=== PATIENT | female | born 1985 | race Caucasian/White ===

== ENCOUNTER 2016-04-28 11:48 | Emergency (ER) | payer OTHER ==
[~2016-04-28] VITALS: Ht 149.9 cm; Wt 61.2 kg
[2016-04-28 12:09] VITALS: BP 124/92
[2016-04-28] MEDS ORDERED: TRAM-29 PO (12:52)
[2016-04-28] MEDS ORDERED: SULF1TAB24 PO (12:52)
--- NOTE | 2016-04-28 12:52 | PHYS DOC ---
Past Medical History Past Medical History: No Pertinent History Past Surgical History: Appendectomy, Tubal ligation Smoking: Less than 1pk/day Alcohol Use: Occasionally Drug Use: None Adult General Chief Complaint Chief Complaint: SKIN PROBLEM HPI HPI Patient is a 30 year old female who presents with left axillary abscess for 3 days. She denies any fever or drainage from the wound. She's had similar in the groin but never in the axillae. Her PCP is Rosendo Franklin. Review of Systems Review of Systems Constitutional: Denies fever or chills. [] Integument: Reports left axillary abscess. Neurologic: Denies focal weakness or sensory changes. [] Allergies Allergies Allergies Coded Allergies Type Severity Reaction Last Updated Verified No Known Drug Allergies 04/28/16 No Physical Exam Physical Exam Constitutional: Well developed, well nourished, no acute distress, non-toxic appearance. [] HENT: Normocephalic, atraumatic, oropharynx moist. [] Eyes: PERRLA, EOMI, conjunctiva normal, no discharge. [] Skin: Warm, dry, no erythema, no rash. There is a 1 cm indurated abscess in the left axilla without spontaneous drainage. There is no surrounding cellulitis. Extremities: No tenderness, ROM intact, no edema.. [] Neurologic: Alert and oriented X 3, normal motor function, normal sensory function, no focal deficits noted. [] Psychologic: Affect normal, judgement normal, mood normal. [] Current Patient Data Vital Signs Vital Signs Date Time Temp Pulse Resp B/P Pulse Ox O2 Delivery O2 Flow Rate FiO2 04/28/16 12:09 98.7 79 18 98 Room Air 98.7 EKG EKG [] Radiology/Procedures Radiology/Procedures [] Course & Med Decision Making Course & Med Decision Making Pertinent Labs and Imaging studies reviewed. (See chart for details) [] Dragon Disclaimer Dragon Disclaimer This electronic medical record was generated, in whole or in part, using a voice recognition dictation system. Departure Departure Impression: Primary Impression: Axillary abscess Disposition: 01 HOME, SELF-CARE Condition: STABLE Referrals: ROSENDO FRANKLIN (PCP) Patient Instructions: Abscess, [id number] Additional Instructions: You were seen today for an abscess in your arm pit. Please complete all the prescribed antibiotics, even if you are feeling better. Please take the prescribed pain medication as directed. Do not drive or operate heavy machinery while taking pain medication. Please apply warm compresses to the arm pit to help encourage drainage from the wound. Please follow-up with your primary care doctor in the next 2-3 days for recheck of your wound, or sooner if worsening. Return to the emergency department if you have any new or concerning symptoms. Scripts Tramadol Hcl (Ultram)50 Mg Nudgxy52 Mg PO Q6H PRN PAIN #20 TAB Prov:KASI MENDEZ 04/28/16 Sulfamethoxazole/Trimethoprim (Bactrim Ds Tablet)1 Each Tablet1 Tab PO BID #14 TAB Prov:KASI MENDEZ 04/28/16 KASI MENDEZ Apr 28, 2016 12:52
== END 2016-04-28 12:59 | disposition home or self-care (01) ==
LOC: ER 11:48
DX: L02.412 Cutaneous abscess of left axilla (principal); F17.200 Nicotine dependence, unspecified, uncomplicated; Z98.51 Tubal ligation status; Z90.49 Acquired absence of other specified parts of digestive tract
CPT/HCPCS: 99283

== ENCOUNTER 2016-08-31 11:18 | Emergency (ER) | payer SELFPAY ==
[~2016-08-31] VITALS: Ht 149.9 cm; Wt 59.0 kg
[~2016-08-31 11:18] MED LIST: SULF1TAB24 PO; TRAM-29 PO
[2016-08-31] MEDS ORDERED: IV NORMAL SALINE 1000ML BAG 1,000 ML IV SCH (12:10)
[2016-08-31] MEDS ORDERED: ONDANSETRON PF 4 MG/2 ML VIAL. IV PRN (12:15)
--- NOTE | 2016-08-31 12:18 | PHYS DOC ---
Past Medical History Past Medical History: Anxiety, Depression Past Surgical History: Appendectomy, Tubal ligation Smoking: Cigarettes Alcohol Use: Occasionally Drug Use: Marijuana Adult General Chief Complaint Chief Complaint: CHEST WALL PAIN HPI HPI Patient is a 31 year old female who presents with [chest and abdominal pain] Pt states are sloppy joes for dinner and then ice cream before bedtime. Pt states at midnight "had worst heartburn of life" while lying in bed. Chest tightness and burning. No appetite this am and then worse pain in upper abdomen and chest. Radiated to RUQ and back to throbbing pain then SOA this am with pain. Pain currently 6/10. Pt states she has been under alot of stress and may have also had black looking stools. No fever or chills, no dysuria, no appetite this am Pt admits to 2 episodes of diarrhea today no blood just dark, dry cough , no hemoptysis Review of Systems Review of Systems Constitutional: Denies fever or chills [] Eyes: Denies change in visual acuity, redness, or eye pain [] HENT: Denies nasal congestion or sore throat [] Respiratory: yes shortness of air and slight dry cough Cardiovascular: No additional information not addressed in HPI [] GI: yes abdominal pain, + nausea, no vomiting, bloody stools mild diarrhea] : Denies dysuria or hematuria [] Musculoskeletal: Denies back pain or joint pain [] Integument: Denies rash or skin lesions [] Neurologic: Denies headache, focal weakness or sensory changes [] Current Medications Current Medications Current Medications Medications (Trade) Dose Ordered Sig/Kenn Start Time Stop Time Status Last Admin Dose Admin Info (Do NOT chart on this entry -- for MONITORING) 1 each PRN DAILY PRN 08/31/16 14:30 08/31/16 16:18 DC Iohexol (Omnipaque 300 Mg/ml) 75 ml 1X ONCE 08/31/16 14:30 08/31/16 14:31 DC 08/31/16 14:45 75 ML Morphine Sulfate 2 mg 1X ONCE 08/31/16 15:30 08/31/16 15:31 DC Ondansetron HCl (Zofran) 4 mg PRN Q6HRS PRN 08/31/16 12:15 08/31/16 16:18 DC 08/31/16 12:27 4 MG Pantoprazole Sodium (Protonix Vial) 40 mg 1X ONCE 08/31/16 14:00 08/31/16 14:01 DC 08/31/16 14:10 40 MG Sodium Chloride 1,000 ml @ 1,000 mls/hr Q1H 08/31/16 12:10 08/31/16 13:09 DC 08/31/16 12:26 1,000 MLS/HR Allergies Allergies Allergies Coded Allergies Type Severity Reaction Last Updated Verified No Known Drug Allergies 04/28/16 No Physical Exam Physical Exam Constitutional: Well developed, well nourished, no acute distress, non-toxic appearance. [] HENT: Normocephalic, atraumatic, bilateral external ears normal, oropharynx moist, no oral exudates, nose normal. [] Eyes: PERRLA,, conjunctiva normal, no discharge. [] Neck: Normal range of motion, no tenderness, supple, no stridor. [] Cardiovascular:Heart rate regular rhythm, no murmur [] Lungs & Thorax: Bilateral breath sounds clear to auscultation , no chest wall tenderness to palpation Abdomen: Bowel sounds normal, soft, YES epigastric tenderness to palpation and RUQ tenderness, yes guarding no rebound no masses, no pulsatile masses. [] Skin: Warm, dry, no erythema, no rash. [] Back: No tenderness, no CVA tenderness. [] Extremities: No tenderness, no cyanosis, no clubbing, ROM intact, no edema. [] Neurologic: Alert and oriented X 3, normal motor function, normal sensory function, no focal deficits noted. [] Psychologic: Affect normal, judgement normal, mood normal. [] Current Patient Data Vital Signs Vital Signs Date Time Temp Pulse Resp B/P (MAP) Pulse Ox O2 Delivery O2 Flow Rate FiO2 08/31/16 15:53 83 106/68 (81) 08/31/16 15:52 Room Air 08/31/16 14:31 97 08/31/16 11:30 97.8 20 97.8 Lab Values Laboratory Tests Test 08/31/16 11:16 08/31/16 12:05 08/31/16 12:20 08/31/16 14:00 POC Urine HCG, Qualitative Hcg negative (Negative) Urine Collection Type Void Urine Color Yellow Urine Clarity Clear Urine pH 7.5 Urine Specific Webster <=1.005 Urine Protein Negative mg/dL (NEG-TRACE) Urine Glucose (UA) Negative mg/dL (NEG) Urine Ketones (Stick) Negative mg/dL (NEG) Urine Blood Negative (NEG) Urine Nitrite Negative (NEG) Urine Bilirubin Negative (NEG) Urine Urobilinogen Dipstick 0.2 mg/dL (0.2 mg/dL) Urine Leukocyte Esterase Trace (NEG) Urine RBC 0 /HPF (0-2) Urine WBC 1-4 /HPF (0-4) Urine Squamous Epithelial Cells Mod /LPF Urine Bacteria 0 /HPF (0-FEW) White Blood Count 10.8 x10^3/uL (4.0-11.0) Red Blood Count 4.73 x10^6/uL (3.50-5.40) Hemoglobin 15.2 g/dL (12.0-15.5) Hematocrit 44.1 % (36.0-47.0) Mean Corpuscular Volume 93 fL (79-100) Mean Corpuscular Hemoglobin 32 pg (25-35) Mean Corpuscular Hemoglobin Concent 34 g/dL (31-37) Red Cell Distribution Width 13.2 % (11.5-14.5) Platelet Count 187 x10^3/uL (140-400) Neutrophils (%) (Auto) 72 % (31-73) Lymphocytes (%) (Auto) 21 % (24-48) L Monocytes (%) (Auto) 6 % (0-9) Eosinophils (%) (Auto) 1 % (0-3) Basophils (%) (Auto) 1 % (0-3) Neutrophils # (Auto) 7.7 x10^3uL (1.8-7.7) Lymphocytes # (Auto) 2.3 x10^3/uL (1.0-4.8) Monocytes # (Auto) 0.7 x10^3/uL (0.0-1.1) Eosinophils # (Auto) 0.1 x10^3/uL (0.0-0.7) Basophils # (Auto) 0.1 x10^3/uL (0.0-0.2) Prothrombin Time 12.8 SEC (11.7-14.0) Prothrombin Time INR 1.0 (0.8-1.1) D-Dimer (Margarita) 0.22 ug/mlFEU (0.00-0.50) Maternal Serum HCG Beta Subunit 1 mIU/mL (0-6) Sodium Level 141 mmol/L (136-145) Potassium Level 3.8 mmol/L (3.5-5.1) Chloride Level 104 mmol/L (98-107) Carbon Dioxide Level 26 mmol/L (21-32) Anion Gap 11 (6-14) Blood Urea Nitrogen 9 mg/dL (7-20) Creatinine 0.6 mg/dL (0.6-1.0) Estimated GFR (Cockcroft-Gault) 116.6 Glucose Level 92 mg/dL (70-99) Calcium Level 8.9 mg/dL (8.5-10.1) Magnesium Level 2.0 mg/dL (1.8-2.4) Total Bilirubin 0.4 mg/dL (0.2-1.0) Direct Bilirubin 0.1 mg/dL (0.0-0.2) Aspartate Amino Transferase (AST) 18 U/L (15-37) Alanine Aminotransferase (ALT) 29 U/L (14-59) Alkaline Phosphatase 71 U/L (46-116) Creatine Kinase 55 U/L (26-192) Creatine Kinase MB (Mass) < 0.5 ng/mL (0.0-3.6) Creatine Kinase MB Relative Index % (0-4) Troponin I Quantitative < 0.017 ng/mL (0.000-0.055) LR-Chv-K-Type Natriuretic Peptide 113 pg/mL (0-124) Total Protein 7.4 g/dL (6.4-8.2) Albumin 3.9 g/dL (3.4-5.0) Lipase 105 U/L (73-393) POC Troponin I 0.00 ng/ml (<0.08) Laboratory Tests 08/31/16 12:20 Laboratory Tests 08/31/16 12:20 EKG EKG EKG 1135 Normal sinus rhythm no STEMI, nonspecific ST T wave changes[] Radiology/Procedures Radiology/Procedures PATIENT: NAMITA DIAZ ACCOUNT: [id number] : 1985 LOCATION: ER AGE: 31 SEX: F EXAM STATUS: REG ER ORD. PHYSICIAN: CARSON BURDEN MD REASON: abdominal pain PROCEDURE: CT CHEST ABDOMEN W/CONTRAST Indication chest pain. Shortness of breath. Upper abdominal pain. Cough. Axial images were obtained through the chest and abdomen. The pelvis was not examined. 75 cc of Omnipaque 300 was administered intravenously. No oral contrast was administered. CT chest: Findings. The thoracic aorta appears unremarkable. There is no significant hilar or mediastinal adenopathy. There is no acute parenchymal infiltrate seen in either lung. Calcified granuloma in the left lung is noted. There is a well-defined 8 x 2 mm nodule along the fissure in the right lung. This is seen on image 28 series 2. This is likely incidental but follow-up imaging along the lines of the Fleischner criteria should be considered. CT abdomen: Findings The liver and spleen appear unremarkable. The gallbladder appears grossly normal. No pancreatic abnormality is seen. No adrenal pathology is seen. There is a low-density 7 mm mass associated with the right kidney compatible with a cyst. Acute finding in the abdomen is not seen. IMPRESSION: No acute finding seen in the chest or abdomen. Well-defined 7 mm nodule in the right lung. It has very benign appearing characteristics on imaging. Follow-up along the lines of the Fleischner criteria should be considered. Nodules detected incidentally at non-screening CT Nodule size (mm) less than or equal to 4 Low Risk patients- no follow-up needed High Risk patients- follow-up at 12 months and if no change, no further imaging needed. Nodule size > 4-6 mm Low risk patients- follow- up at 12 months and if no change, no further imaging needed High risk patients- initial follow-up CT at 6-12 months and then at 18-24 months if no change. Nodule Size > 6-8 mm Low risk patients- initial follow-up CT at 6-12 months and then at 18-24 months if no change. High risk patients- initial follow- up CT at 3-6 months and then at 9-12 months if no change, Nodule Size >8 mm Either low or high risk patients: Follow-up CT at around 3, 9 and 24 months Dynamic contrast enhanced [address], PET, and/or biopsy Note: newly detected indeterminate nodule in person 35 years of age or older. Low risk patients- minimal or absent history of smoking and/or other known risk factors. High risk patients- history of smoking or of other known risk factors. PQRS Compliance Statement: One or more of the following individualized dose reduction techniques were utilized for this examination: 1. Automated exposure control 2. Adjustment of the mA and/or kV according to patient size 3. Use of iterative reconstruction technique DICTATED and SIGNED BY: APPLE WILSON MD DATE: 08/31/16 1453 CC: CARSON BURDEN MD; ROSENDO FRANKLIN ~ [] PATIENT: NAMITA DIAZ ACCOUNT: [id number] : 1985 LOCATION: ER AGE: 31 SEX: F EXAM STATUS: REG ER ORD. PHYSICIAN: CARSON BURDEN MD REASON: chest pain PROCEDU PATIENT: NAMITA DIAZ ACCOUNT: [id number] : 1985 LOCATION: ER AGE: 31 SEX: F EXAM STATUS: REG ER ORD. PHYSICIAN: CARSON BURDEN MD REASON: ruq abdominal pain PROCEDURE: ABDOMEN LTD Indication right upper quadrant pain. Grayscale imaging was performed targeted to the right upper quadrant. The visualized pancreas appears unremarkable. The visualized inferior vena cava appeared normal. No focal mass is seen in the visualized liver. The gallbladder appeared unremarkable. The common bile duct diameter of approximately 2 mm is normal. The right kidney appeared normal. IMPRESSION: Unremarkable right upper quadrant abdominal ultrasound exam DICTATED and SIGNED BY: APPLE WILSON MD DATE: 08/31/16 1241 CC: CARSON BURDEN MD; ROSENDO FRANKLIN ~ RE: PORTABLE CHEST 1V Indication chest pain. A single view of the chest was obtained and is compared to an examination 10/14/2005. The heart and pulmonary vessels are normal. There are occasional calcified left hilar lymph nodes and parenchymal granulomas in the left lung. The lungs are clear of acute infiltrates. A significant change relative to the previous exam is not seen. IMPRESSION: No acute or focal process. No significant change DICTATED and SIGNED BY: APPLE WILSON MD DATE: 08/31/16 1233 CC: CARSON BURDEN MD; ROSENDO FRANKLIN ~ Impressions: 1. abdominal pain 2. chest pain Course & Med Decision Making Course & Med Decision Making Pertinent Labs and Imaging studies reviewed. (See chart for details) 1345 Pt chest pain better now just epigastric pain, WBC normal, troponin normal, CXR normal, RUQ ultrasound normal no stone. Continued abdominal pain will give protonix, get CT abdomen/pelvis and repeat troponin and follow Pt after CT abdomen better tolerating ice chips and pain controlled. Pt denies chest pain now just epigastric pain Rectal no stool in rectum, no blood Discussed CT with pt and other tests. High chance of chololithiasis vs gastritis D/c with protoix and avoid fatty and fried foods with follow up PCP Wesley Disclaimer Dragon Disclaimer This electronic medical record was generated, in whole or in part, using a voice recognition dictation system. Departure Departure Impression: Primary Impression: Abdominal pain Additional Impression: Chest pain Disposition: HOME, SELF-CARE Condition: STABLE Referrals: ROSENDO FRANKLIN (PCP) Scripts Hydrocodone/Apap 5-325 (NORCO 5-325 TABLET) 1 Each Tablet 1 TAB PO PRN Q6HRS Y for PAIN, #14 TAB 0 Refills Prov: CARSON BURDEN MD 08/31/16 Pantoprazole Sodium (PROTONIX) 40 Mg Tablet. 1 TAB PO DAILY, #30 TAB 5 Refills Prov: CARSON BURDEN MD 08/31/16 Problem Qualifiers CARSON BURDEN MD August 31, 2016 12:18
[2016-08-31] MEDS: MORPHINE SULFATE 2 MG/ML DISP.SYRIN. IV/SQ PRN ×2 (12:29→15:52)
[2016-08-31 12:35] LABS: BILIRUBIN,URINE NEGATIVE (NEG); GLUCOSE,URINE NEGATIVE (NEG); NITRITE,URINE NEGATIVE (NEG); PH,URINE 7.5; PROTEIN,URINE NEGATIVE (NEG-TRACE); UROBILINOGEN,URINE 0.2 mg/dL (0.2 mg/dL)
[2016-08-31 12:35] LABS: BASO # 0.1 x10^3/uL (0.0-0.2); BASO % 1 % (0-3); EOS % 1 % (0-3); HEMATOCRIT 44.1 % (36.0-47.0); HEMOGLOBIN 15.2 g/dL (12.0-15.5); LYMPH # 2.3 x10^3/uL (1.0-4.8); LYMPH % 21 % (24-48); MEAN CORPUSCULAR HEMOGLOBIN 32 pg (25-35); MEAN CORPUSCULAR HGB CONC 34 g/dL (31-37); MEAN CORPUSCULAR VOLUME 93 fL (79-100); MONO % 6 % (0-9); NEUT % 72 % (31-73); PLATELET COUNT 187 x10^3/uL (140-400); RED BLOOD COUNT 4.73 x10^6/uL (3.50-5.40); RED CELL DISTRIBUTION WIDTH 13.2 % (11.5-14.5); WHITE BLOOD COUNT 10.8 x10^3/uL (4.0-11.0)
--- NOTE | 2016-08-31 12:37 | RAD ---
Indication chest pain. A single view of the chest was obtained and is compared to an examination 10/14/2005. The heart and pulmonary vessels are normal. There are occasional calcified left hilar lymph nodes and parenchymal granulomas in the left lung. The lungs are clear of acute infiltrates. A significant change relative to the previous exam is not seen. IMPRESSION: No acute or focal process. No significant change
[2016-08-31 12:41] LABS: CALCIUM 8.9 mg/dL (8.5-10.1); CREATININE 0.6 mg/dL (0.6-1.0); GFR 116.6; POTASSIUM 3.8 mmol/L (3.5-5.1)
--- NOTE | 2016-08-31 12:45 | EKG ---
[facility] [address] [place] [address] Test Date: 2016-08-31 Test Time: 11:35:57 Pat Name: NAMITA DIAZ Department: Room: Gender: F [employer]ural [employer]: : 1985 Requested By: CARSON BURDEN Order Number: [id number] Reading MD: Kerry Thorpe Measurements Intervals [place] Rate: 91 P: 42 NC: 124 QRS: 9 QRSD: 72 T: 10 QT: 336 QTc: 415 Interpretive Statements SINUS RHYTHM NORMAL EKG RI6.01 Unconfirmed report No previous ECG available for comparison Electronically Signed On 09-03-2016 20:39:10 CDT by Kerry Thorpe
--- NOTE | 2016-08-31 12:45 | RAD ---
Indication right upper quadrant pain. Grayscale imaging was performed targeted to the right upper quadrant. The visualized pancreas appears unremarkable. The visualized inferior vena cava appeared normal. No focal mass is seen in the visualized liver. The gallbladder appeared unremarkable. The common bile duct diameter of approximately 2 mm is normal. The right kidney appeared normal. IMPRESSION: Unremarkable right upper quadrant abdominal ultrasound exam
[2016-08-31 12:47] LABS: ALBUMIN 3.9 g/dL (3.4-5.0); DIRECT BILIRUBIN 0.1 mg/dL (0.0-0.2); TOTAL BILIRUBIN 0.4 mg/dL (0.2-1.0); TOTAL PROTEIN 7.4 g/dL (6.4-8.2)
[2016-08-31 12:58] LABS: CREATINE KINASE 55 U/L (26-192)
[2016-08-31 12:59] LABS: CKMB MASS < 0.5 ng/mL (0.0-3.6)
[2016-08-31 13:10] LABS: BACTERIA,URINE 0 /HPF (0-FEW); RBC,URINE 0 /HPF (0-2); SQUAMOUS EPITHELIAL CELL,UR MOD /LPF
[2016-08-31 13:20] LABS: PROTHROMBIN TIME PATIENT 12.8 SEC (11.7-14.0)
[2016-08-31] MEDS ORDERED: PANTOPRAZOLE IV PUSH 40 MG VIAL. IVP ONE (14:00)
[2016-08-31] MEDS ORDERED: IOHEXOL 300 MG/ML 75 ML VIAL IV ONE (14:30)
[2016-08-31] MEDS ORDERED: CONTRAST GIVEN MC PRN (14:30)
--- NOTE | 2016-08-31 15:06 | RAD ---
Indication chest pain. Shortness of breath. Upper abdominal pain. Cough. Axial images were obtained through the chest and abdomen. The pelvis was not examined. 75 cc of Omnipaque 300 was administered intravenously. No oral contrast was administered. CT chest: Findings. The thoracic aorta appears unremarkable. There is no significant hilar or mediastinal adenopathy. There is no acute parenchymal infiltrate seen in either lung. Calcified granuloma in the left lung is noted. There is a well-defined 8 x 2 mm nodule along the fissure in the right lung. This is seen on image 28 series 2. This is likely incidental but follow-up imaging along the lines of the Fleischner criteria should be considered. CT abdomen: Findings The liver and spleen appear unremarkable. The gallbladder appears grossly normal. No pancreatic abnormality is seen. No adrenal pathology is seen. There is a low-density 7 mm mass associated with the right kidney compatible with a cyst. Acute finding in the abdomen is not seen. IMPRESSION: No acute finding seen in the chest or abdomen. Well-defined 7 mm nodule in the right lung. It has very benign appearing characteristics on imaging. Follow-up along the lines of the Fleischner criteria should be considered. Nodules detected incidentally at non-screening CT Nodule size (mm) less than or equal to 4 Low Risk patients- no follow-up needed High Risk patients- follow-up at 12 months and if no change, no further imaging needed. Nodule size > 4-6 mm Low risk patients- follow- up at 12 months and if no change, no further imaging needed High risk patients- initial follow-up CT at 6-12 months and then at 18-24 months if no change. Nodule Size > 6-8 mm Low risk patients- initial follow-up CT at 6-12 months and then at 18-24 months if no change. High risk patients- initial follow- up CT at 3-6 months and then at 9-12 months if no change, Nodule Size >8 mm Either low or high risk patients: Follow-up CT at around 3, 9 and 24 months Dynamic contrast enhanced [address], PET, and/or biopsy Note: newly detected indeterminate nodule in person 35 years of age or older. Low risk patients- minimal or absent history of smoking and/or other known risk factors. High risk patients- history of smoking or of other known risk factors. PQRS Compliance Statement: One or more of the following individualized dose reduction techniques were utilized for this examination: 1. Automated exposure control 2. Adjustment of the mA and/or kV according to patient size 3. Use of iterative reconstruction technique
[2016-08-31] MEDS ORDERED: MORPHINE SULFATE 2 MG/ML DISP.SYRIN. IV ONE (15:30)
[2016-08-31 15:53] VITALS: BP 106/68
[2016-08-31] MEDS ORDERED: PANT40TA3 PO (15:54)
[2016-08-31] MEDS ORDERED: HYDR-971 PO (15:54)
== END 2016-08-31 16:12 | disposition home or self-care (01) ==
LOC: ER 11:18
DX: R10.13 Epigastric pain (principal); R10.11 Right upper quadrant pain; R07.89 Other chest pain; R11.0 Nausea; R19.7 Diarrhea, unspecified; F32.9 Major depressive disorder, single episode, unspecified; F41.9 Anxiety disorder, unspecified; F17.210 Nicotine dependence, cigarettes, uncomplicated; F12.10 Cannabis abuse, uncomplicated; Z90.49 Acquired absence of other specified parts of digestive tract; Z98.51 Tubal ligation status
CPT/HCPCS: 36415; 71010; 71260; 74160; 76705; 80048; 80076; 81001; 81025; 82553; 83690; 83735; 83880; 84484; 84702; 85027; 85379; 85610; 87086; 93005; 96361; 96374; 96375; 96376; 99285; C9113; J2270; J2405; J7030; Q9967

== ENCOUNTER 2017-03-05 16:21 | Emergency (ER) | payer SELFPAY ==
[~2017-03-05] VITALS: Ht 149.9 cm; Wt 58.1 kg
[~2017-03-05 16:21] MED LIST changes: +HYDR-971 PO; +PANT40TA3 PO; -TRAM-29 PO; +TRAM-48 PO
[2017-03-05 16:45] VITALS: BP 124/80
[2017-03-05] MEDS ORDERED: CYCL5TAB PO (18:56)
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
== END 2017-03-05 19:05 | disposition home or self-care (01) ==
LOC: ER 16:21
DX: S13.4XXA Sprain of ligaments of cervical spine, initial encounter (principal); F17.200 Nicotine dependence, unspecified, uncomplicated; V43.42XA Person boarding or alighting a car injured in collision with other type car, initial encounter; Y93.89 Activity, other specified; Y99.8 Other external cause status; Y92.488 Other paved roadways as the place of occurrence of the external cause
CPT/HCPCS: 72040; 73030; 99284

== ENCOUNTER 2019-06-18 15:03 | Emergency (ER) | payer MEDICAID, OTHER ==
[~2019-06-18] VITALS: Ht 149.9 cm; Wt 59.5 kg
[~2019-06-18 15:03] MED LIST changes: +CYCL5TAB PO; +HYDR-3164 PO; -HYDR-971 PO; -PANT40TA3 PO; +PANT40TA77 PO
--- NOTE | 2019-06-18 15:21 | PHYS DOC ---
Past Medical History Past Medical History: Anxiety, Depression Past Surgical History: Appendectomy, Hysterectomy, Tubal ligation Smoking Status: Current Every Day Smoker Alcohol Use: None Drug Use: None, Marijuana Adult General HPI HPI Patient is a 34-year-old female who presents to the emergency department for evaluation. she states for the past day, she has had sharp anterior left-sided chest pain, worse with movements and deep breathing. She appears extraordinarily anxious and states she has a history of anxiety, but has been off of her Xanax and depression medication for quite some time. She denies any significant shortness of breath, exertional pain, nausea, or vomiting. She also has some upper abdominal discomfort as well. She has not had any fevers or chills. She has no family history of premature onset coronary artery disease. Her HEART score is a 1, assuming a negative troponin.. The patient does report having some paresthesias in her left arm, in the setting of hyperventilation, but otherwise does not have any other neurological symptoms at this time. Review of Systems Review of Systems Constitutional: Denies fever or chills [] Eyes: Denies change in visual acuity, redness, or eye pain [] HENT: Denies nasal congestion or sore throat [] Respiratory: Denies cough or shortness of breath [] Cardiovascular: No additional information not addressed in HPI [] GI: Denies nausea, vomiting, bloody stools or diarrhea [] : Denies dysuria or hematuria [] Musculoskeletal: Denies back pain or joint pain [] Integument: Denies rash or skin lesions [] Neurologic: Denies headache, focal weakness or sensory changes [] Endocrine: Denies polyuria or polydipsia [] All other systems were reviewed and found to be within normal limits, except as documented in this note. Current Medications Current Medications Current Medications Medications (Trade) Dose Ordered Sig/Kenn Start Time Stop Time Status Last Admin Dose Admin Ketorolac Tromethamine (Toradol 30mg Vial) 30 mg 1X ONCE 06/18/19 17:00 06/18/19 17:01 UNV Lorazepam (Ativan Inj) 1 mg 1X ONCE 06/18/19 15:30 06/18/19 15:31 DC 06/18/19 15:38 1 MG Multi-Ingredient Mouthwash/Gargle (Gi Cocktail) 20 ml 1X ONCE 06/18/19 15:30 06/18/19 15:31 DC 06/18/19 15:38 20 ML Allergies Allergies Allergies Coded Allergies Type Severity Reaction Last Updated Verified No Known Drug Allergies 04/28/16 No Physical Exam Physical Exam PHYSICAL EXAM: CONSTITUTIONAL: Well developed, well nourished HEAD: normocephalic, atraumatic EENT: PERRL, EOMI. Conjunctivae normal color, sclerae non-icteric; moist mucous membranes. NECK: Supple, non-tender; no meningismus. LUNGS: Lungs CTA, breathing even and unlabored. Normal air movement. HEART: Regular rate and rhythm, no murmur CHEST: No deformity; nonthere is tenderness to palpation to the anterior chest which reproduces the patient's pain. ABDOMEN: The abdomen is soft, there is some epigastric tenderness to palpation, as well as left upper quadrant tenderness to palpation, without rebound or guarding. The remainder of the abdomen is soft and non-tender, no masses or bruits. EXTREM: Normal ROM; no deformity, no calf tenderness. Normal pulses palpable in all extremities. There is no pedal edema. SKIN: No rash; no diaphoresis NEURO: Alert; normal speech and cognition; CN's grossly intact; strength grossly intact without focal deficit. BACK: No CVA TTP. PSYCHIATRIC: The patient appears extraordinarily anxious. Reports anxiety, related to stress from several ill family members. Denies suicidal ideation. Current Patient Data Vital Signs Vital Signs Date Time Temp Pulse Resp B/P (MAP) Pulse Ox O2 Delivery O2 Flow Rate FiO2 06/18/19 15:26 98.9 98 22 136/66 (89) 100 Room Air 98.9 Lab Values Laboratory Tests Test 06/18/19 15:20 White Blood Count 9.4 x10^3/uL (4.0-11.0) Red Blood Count 4.64 x10^6/uL (3.50-5.40) Hemoglobin 14.4 g/dL (12.0-15.5) Hematocrit 40.8 % (36.0-47.0) Mean Corpuscular Volume 88 fL (79-100) Mean Corpuscular Hemoglobin 31 pg (25-35) Mean Corpuscular Hemoglobin Concent 35 g/dL (31-37) Red Cell Distribution Width 12.5 % (11.5-14.5) Platelet Count 217 x10^3/uL (140-400) Neutrophils (%) (Auto) 64 % (31-73) Lymphocytes (%) (Auto) 28 % (24-48) Monocytes (%) (Auto) 7 % (0-9) Eosinophils (%) (Auto) 1 % (0-3) Basophils (%) (Auto) 1 % (0-3) Neutrophils # (Auto) 6.1 x10^3/uL (1.8-7.7) Lymphocytes # (Auto) 2.6 x10^3/uL (1.0-4.8) Monocytes # (Auto) 0.6 x10^3/uL (0.0-1.1) Eosinophils # (Auto) 0.1 x10^3/uL (0.0-0.7) Basophils # (Auto) 0.1 x10^3/uL (0.0-0.2) D-Dimer (Margarita) 0.46 ug/mlFEU (0.00-0.50) Sodium Level 140 mmol/L (136-145) Potassium Level 3.4 mmol/L (3.5-5.1) L Chloride Level 104 mmol/L (98-107) Carbon Dioxide Level 24 mmol/L (21-32) Anion Gap 12 (6-14) Blood Urea Nitrogen 9 mg/dL (7-20) Creatinine 0.9 mg/dL (0.6-1.0) Estimated GFR (Cockcroft-Gault) 71.7 BUN/Creatinine Ratio 10 (6-20) Glucose Level 94 mg/dL (70-99) Calcium Level 9.1 mg/dL (8.5-10.1) Total Bilirubin 0.4 mg/dL (0.2-1.0) Aspartate Amino Transferase (AST) 18 U/L (15-37) Alanine Aminotransferase (ALT) 28 U/L (14-59) Alkaline Phosphatase 82 U/L (46-116) Troponin I Quantitative < 0.017 ng/mL (0.000-0.055) Total Protein 7.1 g/dL (6.4-8.2) Albumin 4.2 g/dL (3.4-5.0) Albumin/Globulin Ratio 1.4 (1.0-1.7) Lipase 96 U/L (73-393) Laboratory Tests 06/18/19 15:20 Laboratory Tests 3/8/20 15:20 EKG EKG [] Normal sinus rhythm at a rate of 100 bpm, normal axis, normal intervals. Nonspecific ST/T changes. Radiology/Procedures Radiology/Procedures PROCEDURE: PORTABLE CHEST 1V Exam performed: One view chest. Indication: Chest pain Date of Service: 06/18/2019 3:17 PM Comparison: 08/31/2016. Single AP upright portable view chest findings: Cardiomediastinal silhouette is within limits of normal. No acute infiltrates, effusion or pneumothorax is detected. The bony structures are normal. Impression: No acute cardiopulmonary process is detected. [] Course & Med Decision Making Course & Med Decision Making Pertinent Labs and Imaging studies reviewed. (See chart for details) [] 4:50 PM: Patient remains stable. I discussed test results, the need for close follow-up, and return precautions. Dragon Disclaimer Dragon Disclaimer This electronic medical record was generated, in whole or in part, using a voice recognition dictation system. Departure Departure Impression: Primary Impression: Chest pain Additional Impression: Anxiety Disposition: 01 HOME, SELF-CARE Condition: STABLE Referrals: ROSENDO FRANKLIN (PCP) Patient Instructions: Anxiety and Panic Attacks, Chest Pain (Nonspecific), Chest Wall Pain Additional Instructions: Ibuprofen 400-600 mg every 6 hours may help improve your symptoms. Applying a heating pad to the affected area may help improve your symptoms. Use the provided resources to help establish care with a primary care provider. Problem Qualifiers GAURAV RAGLAND MD Jun 18, 2019 15:21
[2019-06-18 15:28] LABS: BASO # 0.1 x10^3/uL (0.0-0.2); BASO % 1 % (0-3); EOS # 0.1 x10^3/uL (0.0-0.7); EOS % 1 % (0-3); HEMATOCRIT 40.8 % (36.0-47.0); HEMOGLOBIN 14.4 g/dL (12.0-15.5); LYMPH # 2.6 x10^3/uL (1.0-4.8); LYMPH % 28 % (24-48); MEAN CORPUSCULAR HEMOGLOBIN 31 pg (25-35); MEAN CORPUSCULAR HGB CONC 35 g/dL (31-37); MEAN CORPUSCULAR VOLUME 88 fL (79-100); MONO # 0.6 x10^3/uL (0.0-1.1); MONO % 7 % (0-9); NEUT # 6.1 x10^3/uL (1.8-7.7); NEUT % 64 % (31-73); PLATELET COUNT 217 x10^3/uL (140-400); RED BLOOD COUNT 4.64 x10^6/uL (3.50-5.40); RED CELL DISTRIBUTION WIDTH 12.5 % (11.5-14.5); WHITE BLOOD COUNT 9.4 x10^3/uL (4.0-11.0)
[2019-06-18] MEDS ORDERED: LIDO:MAALOX 1:1 20 ML SINGLE DOSE. SWSW ONE (15:30)
[2019-06-18 15:43] LABS: CALCIUM 9.1 mg/dL (8.5-10.1); CREATININE 0.9 mg/dL (0.6-1.0); GFR 71.7; POTASSIUM 3.4 mmol/L (3.5-5.1)
[2019-06-18 15:49] LABS: ALBUMIN 4.2 g/dL (3.4-5.0); ALBUMIN/GLOBULIN RATIO 1.4 (1.0-1.7); TOTAL BILIRUBIN 0.4 mg/dL (0.2-1.0); TOTAL PROTEIN 7.1 g/dL (6.4-8.2)
--- NOTE | 2019-06-18 16:40 | RAD ---
Exam performed: One view chest. Indication: Chest pain Date of Service: 06/18/2019 3:17 PM Comparison: 08/31/2016. Single AP upright portable view chest findings: Cardiomediastinal silhouette is within limits of normal. No acute infiltrates, effusion or pneumothorax is detected. The bony structures are normal. Impression: No acute cardiopulmonary process is detected. Electronically signed by: Marly Mcneil MD (06/18/2019 4:37 PM) [id number]
[2019-06-18] MEDS ORDERED: KETOROLAC 30 MG/ML VIAL. IVP ONE (17:00)
[2019-06-18 17:24] VITALS: BP 109/80
--- NOTE | 2019-06-18 19:36 | EKG ---
[facility] [address] [place] [address] Test Date: 2019-06-18 Test Time: 15:11:12 Pat Name: NAMITA DIAZ Department: Room: Gender: F Regulatory Affairs Analyst: : 1985 Requested By: GAURAV RAGLAND Order Number: [id number] Reading MD: Measurements Intervals [place] Rate: 100 P: 55 [place]: 112 QRS: 11 QRSD: 78 T: 20 QT: 324 QTc: 420 Interpretive Statements SINUS RHYTHM LEFT ATRIAL ABNORMALITY NON SPECIFIC ST DEPRESSION ABNORMAL ECG No previous ECG available for comparison
== END 2019-06-18 17:30 | disposition home or self-care (01) ==
LOC: ER 15:03
DX: R07.89 Other chest pain (principal); F41.9 Anxiety disorder, unspecified; R10.12 Left upper quadrant pain; Z90.89 Acquired absence of other organs; Z90.710 Acquired absence of both cervix and uterus; Z98.51 Tubal ligation status; F17.200 Nicotine dependence, unspecified, uncomplicated
CPT/HCPCS: 36415; 71045; 80053; 83690; 84484; 85025; 85379; 93005; 96374; 96375; 99285; J1885; J2060